=== PATIENT | female | born 1955 | race Caucasian/White ===

== ENCOUNTER → 2020-09-28 | Outpatient (CLI) | payer MEDICARE ==
[2020-09-28 14:57] VITALS: BP 134/89; PULSE 96; RESP 18; TEMP 98.7; BMI 38.4
--- NOTE | 2020-09-28 15:31 | P.HPBAR ---
Bariatric H&P - History & Physicial H&P Date: 09/28/20 History & Physicial: Visit/CC: initial visit Patient initial contact: Initial weight: Initial weight in pounds: Height: 5 ft 2 in Initial BMI: Last weight: Current weight: 95.254 kg Current weight in pounds: 210.00 Current BMI: 38.4 [place] body weight (based on NIH guidelines): 49.895 kg Excess body weight loss: The patient is a 65 year-old F who presents for Bariatric Assessment. Patient presents today for lab band follow. She's not seen several years. She had her LAP-BAND emptied in [place] over a year ago. She's gained weight. She requested fill. 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 bilat rotator cuff. brain sx 07/2010. LAP BAND 2004. Past Anesthesia/Blood Transfusion Reactions: No Reported Reaction Past Psychological History: Depression Smoking Status: Never smoker Past Alcohol Use History: Rare Past Drug Use History: Marijuana Additional Drug Use History / Comment(s): CBD oil in brownies nightly. Surgical - Exam Vital Signs Temp Pulse Resp BP 98.7 F 96 18 134/89 09/28/20 14:42 09/28/20 14:42 09/28/20 14:42 09/28/20 14:42 - General well developed, well nourished, no distress - Eyes PERRL - ENT normal pinna - Neck no masses - Respiratory normal expansion - Cardiovascular Rhythm: regular - Abdomen Abdomen: soft, non tender Bariatric Assessment & Plan Plan: Patient LAP-BAND was just. She 1.5 mL added to her band. She'll follow-up in 4 weeks. Bariatric Checklist Checklist: Plan: Checklist: EGD: 1. Hiatal hernia: 2. H. Pylori: HgbA1c: Vitamin D: Smoking: Primary care physician referral: Khadar Smith ([place], [place]) Psychiatry clearance: Cardiology clearance: Sleep study: Diet journal: VTE risk score: VTE risk level: Rehab needs at discharge:
== END ==
LOC: BARWHC3 14:36
PROVIDERS: ATTEND Surgery
DX: Z46.51 Encounter for fitting and adjustment of gastric lap band (principal); I10 Essential (primary) hypertension; F32.9 Major depressive disorder, single episode, unspecified; Z88.5 Allergy status to narcotic agent; Z88.7 Allergy status to serum and vaccine; Z88.8 Allergy status to other drugs, medicaments and biological substances
CPT/HCPCS: 99202

== ENCOUNTER → 2020-11-02 | Outpatient (CLI) | payer MEDICARE ==
[2020-11-02 15:32] VITALS: BP 141/88; PULSE 83; RESP 16; TEMP 98.7; BMI 38.9
--- NOTE | 2020-11-03 12:39 | P.HPBAR ---
Bariatric H&P - History & Physicial H&P Date: 11/02/20 History & Physicial: Visit/CC: Band f/u Patient initial contact: Initial weight: 105.233 kg Initial weight in pounds: 232.00 Height: 5 ft 2 in Initial BMI: 42.4 Last weight: Current weight: 96.615 kg Current weight in pounds: 213.00 Current BMI: 38.9 [place] body weight (based on NIH guidelines): 49.895 kg Excess body weight loss: 15.5% The patient is a 65 year-old F who presents for Bariatric Assessment. Patient presents today for laparoscopic fall. She's had weight gain. She is requesting a fill. 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 bilat rotator cuff. brain sx 07/2010. LAP BAND 2004. Past Anesthesia/Blood Transfusion Reactions: No Reported Reaction Past Psychological History: Depression Smoking Status: Never smoker Past Alcohol Use History: Rare Past Drug Use History: Marijuana Additional Drug Use History / Comment(s): CBD oil in brownies nightly. Surgical - Exam Vital Signs Temp Pulse Resp BP 98.7 F 83 16 141/88 11/02/20 15:28 11/02/20 15:28 11/02/20 15:28 11/02/20 15:28 - General well developed, well nourished, no distress - Eyes PERRL - ENT normal pinna - Neck no masses - Respiratory normal expansion - Cardiovascular Rhythm: regular - Abdomen Abdomen: soft, non tender Bariatric Assessment & Plan Plan: Patient has a malfunctioning LAP-BAND port. She was given 1 mL fill. There is obvious leak of the port. Patient was scheduled for replacement of LAP-BAND port. Bariatric Checklist Checklist: Plan: Checklist: EGD: 1. Hiatal hernia: 2. H. Pylori: HgbA1c: Vitamin D: Smoking: Primary care physician referral: Khadar Smith ([place], [place]) Psychiatry clearance: Cardiology clearance: Sleep study: Diet journal: VTE risk score: VTE risk level: Rehab needs at discharge:
== END ==
LOC: BARWHC3 14:16
PROVIDERS: ATTEND Surgery
DX: Z46.51 Encounter for fitting and adjustment of gastric lap band (principal); I10 Essential (primary) hypertension; F32.9 Major depressive disorder, single episode, unspecified; Z88.5 Allergy status to narcotic agent; Z88.7 Allergy status to serum and vaccine; Z88.6 Allergy status to analgesic agent
CPT/HCPCS: 99212

== ENCOUNTER 2020-12-08 06:05 | Day surgery (SDC) | payer MEDICARE ==
[2020-12-04 12:39] VITALS: BMI 38.9
[2020-12-08] MEDS ORDERED: LACTATED RINGERS 1,000 ML IV SCH (06:19)
[2020-12-08] MEDS ORDERED: LIDOCAINE 1% (10MG/ML) FOR IV START INTRADERMA PRN (06:19)
[2020-12-08] MEDS ORDERED: LIDOCAINE 1% (10MG/ML) FOR IV START INTRADERMA ONE (07:05)
[2020-12-08] MEDS ORDERED: ONDANSETRON 4 MG/2 ML VIAL ONE (07:21)
[2020-12-08] MEDS ORDERED: DEXAMETHASONE SOD PHOSPHATE 4 MG/ML 1 ML VIAL IVP ONE (07:22)
[2020-12-08] MEDS ORDERED: ONDANSETRON 4 MG/2 ML VIAL IVP ONE (07:22)
[2020-12-08] MEDS ORDERED: ROCURONIUM 10 MG/ML (5 ML VIAL) IV ONE (07:52)
[2020-12-08] MEDS ORDERED: LIDOCAINE 1% INJ 10MG/ML (20 ML MDV) ONE (07:52)
[2020-12-08] MEDS ORDERED: SUCCINYLCHOLINE CHLORIDE 100 MG/5 ML SYR IV ONE (07:52)
[2020-12-08] MEDS ORDERED: HEPARIN SODIUM,PORCINE/PF 5,000 UNIT/0.5 ML SYRINGE SQ ONE (07:52)
[2020-12-08] MEDS ORDERED: fentaNYL (PF) 50 MCG/ML 2 ML AMP ONE (07:52)
[2020-12-08] MEDS ORDERED: NEOSTIGMINE 1 MG/ML 10 ML VIAL ONE (07:52)
[2020-12-08] MEDS ORDERED: GLYCOPYRROLATE 0.2 MG/ML 2 ML VIAL ONE (07:52)
[2020-12-08] MEDS ORDERED: PROPOFOL 10 MG/ML 20 ML VIAL IV ONE (07:52)
[2020-12-08] MEDS ORDERED: HYDROmorphone (PF) 1 MG/ML ONE (07:52)
--- NOTE | 2020-12-08 08:20 | P.GSHP ---
History of Present Illness H&P Date: 12/08/20 Chief Complaint: LAP-BAND port malfunction Is a 65-year-old female who presents today for laparoscopic placement LAP-BAND port. Patient has had issues with maintaining her restriction. Past Medical History Past Medical History: GERD/Reflux, Hypertension, Seizure Disorder Additional Past Medical History / Comment(s): "Sweet Syndrome" (Blood Infection, little blisters appears, comes and goes). No issues in 6 months. Hx low iron. No seizure in 2 yrs. History of Any Multi-Drug Resistant Organisms: None Reported Past Surgical History: Bariatric Surgery, Orthopedic Surgery Additional Past Surgical History / Comment(s): Back fusion (L3,L4,L5), bilateral rotator cuff, brain surgery 07/2010, LAP BAND 2004, varicose vein procedure. Past Anesthesia/Blood Transfusion Reactions: No Reported Reaction Past Psychological History: Depression Additional Psychological History / Comment(s): "No problems with depression in a lot of years." Smoking Status: Never smoker Past Alcohol Use History: Rare Past Drug Use History: Marijuana Additional Drug Use History / Comment(s): CBD oil in brownies nightly. - Past Family History Mother Family Medical History: Cancer Additional Family Medical History / Comment(s): Breast cancer. Sister(s) Family Medical History: Cancer Additional Family Medical History / Comment(s): Breast cancer X2 sisters. Medications and Allergies Home Medications Medication Instructions Recorded Confirmed Type Omeprazole 20 mg PO HS 12/04/20 12/08/20 History Allergies Allergy/AdvReac Type Severity Reaction Status Date / Time codeine Allergy Nausea & Verified 12/08/20 07:16 Vomiting meperidine [From Demerol] Allergy Nausea & Verified 12/08/20 07:16 Vomiting Tetanus Vaccines and Toxoid Allergy Swelling Verified 12/08/20 07:16 Surgical - Exam Vital Signs Temp Pulse Resp BP Pulse Ox 97.0 F L 89 16 135/88 96 12/08/20 06:47 12/08/20 06:47 12/08/20 06:47 12/08/20 06:47 12/08/20 06:47 - General well developed, well nourished, no distress - Eyes PERRL - ENT normal pinna - Neck no masses - Respiratory normal expansion - Cardiovascular Rhythm: regular - Abdomen Abdomen: soft, non tender Assessment and Plan Assessment: LAP-BAND port function. We'll perform laparoscopic replacement of LAP-BAND port.
[2020-12-08] MEDS ORDERED: BUPIVACAINE (PF) 0.5% 30 ML VIAL SQ ONE (08:24)
--- NOTE | 2020-12-08 08:58 | P.OP ---
Date of Procedure: 12/08/20 Preoperative Diagnosis: LAP-BAND port malfunction Postoperative Diagnosis: LAP-BAND port malfunction Procedure(s) Performed: Laparoscopic removal and replacement of LAP-BAND port Anesthesia: KATHERINE Surgeon: Quentin Hanson Pathology: none sent Condition: stable Disposition: PACU Description of Procedure: The patient's placed on the operative table in the supine position. She received general anesthesia. Her abdomen was prepped and draped usual fashion. The trocar sites were anesthetized 1% local Xylocaine. Using 11 blade the skin was incised over the LAP-BAND port. Using left cautery the subcu tissue divided. The LAP-BAND port was dissected free and sent to pathology. Next a 5 mm trochars placed into the epigastric port site the end was insufflated. After adequate insufflation a 10 mm trochars placed in the upper quadrant. The PEG tube was then brought over to the 10 mm trocar site. It was extracted through the mitral percent. The new LAP-BAND port connected PEG tube. The new port site skin was incised and left cautery used to dissect subcutaneous fat off of the fascia. The LAP-BAND port and connected to the fascia using 0 Nurolon suture. The LAP-BAND port was then flushed with 3 mL of saline. There was no leak. All fluid was removed from the LAP-BAND port. The skin was closed interrupted 3-0 Monocryl suture. The trochars were withdrawn and the skin was closed with Vicryl suture. Dermabond was applied. Patient top she will was sent to recovery room in stable condition.
[2020-12-08 09:05] VITALS: TEMP 97.9
[2020-12-08] MEDS ORDERED: KETOROLAC 15 MG/ML 1 ML VIAL ONE (09:06)
[2020-12-08] MEDS ORDERED: HYDROmorphone 0.5 MG/0.5 ML SYRINGE IVP ONE (09:08)
[2020-12-08] MEDS ORDERED: KETOROLAC 15 MG/ML 1 ML VIAL IVP ONE (09:11)
[2020-12-08 10:37] VITALS: BP 138/89; PULSE 62; RESP 16
== END 2020-12-08 10:55 | disposition home or self-care (01) ==
LOC: OR 06:05
PROVIDERS: ATTEND Surgery
DX: T85.618A Breakdown (mechanical) of other specified internal prosthetic devices, implants and grafts, initial encounter (principal); K21.9 Gastro-esophageal reflux disease without esophagitis; I10 Essential (primary) hypertension; G40.909 Epilepsy, unspecified, not intractable, without status epilepticus; L98.2 Febrile neutrophilic dermatosis [Sweet]; Z98.1 Arthrodesis status; Z98.890 Other specified postprocedural states; F32.9 Major depressive disorder, single episode, unspecified; Z85.841 Personal history of malignant neoplasm of brain; Z97.2 Presence of dental prosthetic device (complete) (partial); Z80.3 Family history of malignant neoplasm of breast; Z79.899 Other long term (current) drug therapy; Z88.5 Allergy status to narcotic agent; Z88.7 Allergy status to serum and vaccine
CPT/HCPCS: 43773; C1751; J1100; J2710; J0690; J2405; J2001; J3010; J1170 ×2; J1885; J0330; J2704; J1644

== ENCOUNTER → 2020-12-14 | Outpatient (CLI) | payer MEDICARE ==
[2020-12-14 14:14] VITALS: BP 158/85; PULSE 82; TEMP 98.2; BMI 37.6
--- NOTE | 2020-12-24 19:51 | P.HPBAR ---
Bariatric H&P - History & Physicial H&P Date: 12/14/20 History & Physicial: Visit/CC: port rerplacement follow up Patient initial contact: Initial weight: 105.233 kg Initial weight in pounds: 232.00 Height: 5 ft 2 in Initial BMI: 42.4 Last weight: Current weight: 93.44 kg Current weight in pounds: 206.00 Current BMI: 37.6 [place] body weight (based on NIH guidelines): 49.895 kg Excess body weight loss: 21.3% The patient is a 65 year-old F who presents for Bariatric Assessment. Patient presents today for postoperative follow-up. She underwent recent LAP-BAND port replacement. Past Medical History Past Medical History: GERD/Reflux, Hypertension, Seizure Disorder Additional Past Medical History / Comment(s): "Sweet Syndrome" (Blood Infection, little blisters appears, comes and goes). No issues in 6 months. Hx low iron. No seizure in 2 yrs. History of Any Multi-Drug Resistant Organisms: None Reported Past Surgical History: Bariatric Surgery, Orthopedic Surgery Additional Past Surgical History / Comment(s): Back fusion (L3,L4,L5), bilateral rotator cuff, brain surgery 07/2010, LAP BAND 2004, varicose vein procedure. lap band port replacement 12-08-20 Past Anesthesia/Blood Transfusion Reactions: No Reported Reaction Past Psychological History: Depression Additional Psychological History / Comment(s): "No problems with depression in a lot of years." Smoking Status: Never smoker Past Alcohol Use History: Rare Past Drug Use History: Marijuana Additional Drug Use History / Comment(s): CBD oil in brownies nightly. - Past Family History Mother Family Medical History: Cancer Additional Family Medical History / Comment(s): Breast cancer. Sister(s) Family Medical History: Cancer Additional Family Medical History / Comment(s): Breast cancer X2 sisters. Surgical - Exam Vital Signs Temp Pulse BP 98.2 F 82 158/85 12/14/20 14:09 12/14/20 14:09 12/14/20 14:09 - General well developed, well nourished, no distress - Eyes PERRL - ENT normal pinna - Neck no masses - Respiratory normal expansion - Cardiovascular Rhythm: regular - Abdomen Abdomen: soft, non tender Bariatric Assessment & Plan Plan: Patient's lap band port site is clean. She'll follow-up in 2 weeks for LAP-BAND adjustment Bariatric Checklist Checklist: Plan: Checklist: EGD: 1. Hiatal hernia: 2. H. Pylori: HgbA1c: Vitamin D: Smoking: Primary care physician referral: Khadar Smith ([place], [place]) Psychiatry clearance: Cardiology clearance: Sleep study: Diet journal: VTE risk score: VTE risk level: Rehab needs at discharge:
== END ==
LOC: BARWHC3 12:55
PROVIDERS: ATTEND Surgery
DX: Z09 Encounter for follow-up examination after completed treatment for conditions other than malignant neoplasm (principal); I10 Essential (primary) hypertension; F32.9 Major depressive disorder, single episode, unspecified; Z98.84 Bariatric surgery status; Z88.5 Allergy status to narcotic agent; Z88.7 Allergy status to serum and vaccine
CPT/HCPCS: 99211

== ENCOUNTER → 2021-01-18 | Outpatient (CLI) | payer MEDICARE ==
[2021-01-18 14:19] VITALS: BP 129/91; PULSE 99; RESP 18; TEMP 98.4; BMI 38.2
--- NOTE | 2021-01-18 16:14 | P.HPBAR ---
Bariatric H&P - History & Physicial H&P Date: 01/18/21 History & Physicial: Visit/CC: follow up / lap band Patient initial contact: Initial weight: 105.233 kg Initial weight in pounds: 232.00 Height: 5 ft 2 in Initial BMI: 42.4 Last weight: Current weight: 94.982 kg Current weight in pounds: 209.40 Current BMI: 38.2 [place] body weight (based on NIH guidelines): 49.895 kg Excess body weight loss: 18.5% The patient is a 65 year-old F who presents for Bariatric Assessment. Patient presents today for LAP-BAND follow-up. She is requesting a fill her band. He is currently hungry. Past Medical History Past Medical History: GERD/Reflux, Hypertension, Seizure Disorder Additional Past Medical History / Comment(s): "Sweet Syndrome" (Blood Infection, little blisters appears, comes and goes). No issues in 6 months. Hx low iron. No seizure in 2 yrs. History of Any Multi-Drug Resistant Organisms: None Reported Past Surgical History: Bariatric Surgery, Orthopedic Surgery Additional Past Surgical History / Comment(s): Back fusion (L3,L4,L5), bilateral rotator cuff, brain surgery 07/2010, LAP BAND 2004, varicose vein procedure. lap band port replacement 12-08-20 Past Anesthesia/Blood Transfusion Reactions: No Reported Reaction Past Psychological History: Depression Additional Psychological History / Comment(s): "No problems with depression in a lot of years." Smoking Status: Never smoker Past Alcohol Use History: Rare Past Drug Use History: Marijuana Additional Drug Use History / Comment(s): CBD oil in brownies nightly. - Past Family History Mother Family Medical History: Cancer Additional Family Medical History / Comment(s): Breast cancer. Sister(s) Family Medical History: Cancer Additional Family Medical History / Comment(s): Breast cancer X2 sisters. Surgical - Exam Vital Signs Temp Pulse Resp BP 98.4 F 99 18 129/91 01/18/21 14:15 01/18/21 14:15 01/18/21 14:15 01/18/21 14:15 - General well developed, well nourished, no distress - Eyes PERRL - ENT normal pinna - Neck no masses - Respiratory normal expansion - Cardiovascular Rhythm: regular - Abdomen Abdomen: soft, non tender Bariatric Assessment & Plan Plan: Patient LAP-BAND was just. She had 3 mL added to her band. She'll follow-up in 4 weeks. Bariatric Checklist Checklist: Plan: Checklist: EGD: 1. Hiatal hernia: 2. H. Pylori: HgbA1c: Vitamin D: Smoking: Primary care physician referral: Khadar Smith ([place], [place]) Psychiatry clearance: Cardiology clearance: Sleep study: Diet journal: VTE risk score: VTE risk level: Rehab needs at discharge:
== END ==
LOC: BARWHC3 13:46
PROVIDERS: ATTEND Surgery
DX: Z09 Encounter for follow-up examination after completed treatment for conditions other than malignant neoplasm (principal); I10 Essential (primary) hypertension; F32.A Depression, unspecified; Z98.84 Bariatric surgery status; Z88.5 Allergy status to narcotic agent; Z88.7 Allergy status to serum and vaccine
CPT/HCPCS: 99212

== ENCOUNTER → 2021-05-24 | Outpatient (CLI) | payer MEDICARE ==
[2021-05-24 12:56] VITALS: BP 133/83; PULSE 82; RESP 16; TEMP 98.4; BMI 36.0
--- NOTE | 2021-08-20 10:47 | P.HPBAR ---
Bariatric H&P - History & Physicial H&P Date: 05/24/21 History & Physicial: Visit/CC: lap band followup Patient initial contact: Initial weight: 105.233 kg Initial weight in pounds: 232.00 Height: 5 ft 2 in Initial BMI: 42.4 Last weight: Current weight: 89.312 kg Current weight in pounds: 196.90 Current BMI: 36.0 [place] body weight (based on NIH guidelines): 49.895 kg Excess body weight loss: 28.7% The patient is a 66 year-old F who presents for Bariatric Assessment. Patient presents today for LAP-BAND follow-up. She is requesting a fill of her band. She currently feels hungry. Past Medical History Past Medical History: GERD/Reflux, Hypertension, Seizure Disorder Additional Past Medical History / Comment(s): "Sweet Syndrome" (Blood Infection, little blisters appears, comes and goes). No issues in 6 months. Hx low iron. No seizure in 2 yrs. History of Any Multi-Drug Resistant Organisms: None Reported Past Surgical History: Bariatric Surgery, Orthopedic Surgery Additional Past Surgical History / Comment(s): Back fusion (L3,L4,L5), bilateral rotator cuff, brain surgery 07/2010, LAP BAND 2004, varicose vein procedure. lap band port replacement 12-08-20 Past Anesthesia/Blood Transfusion Reactions: No Reported Reaction Smoking Status: Never smoker - Past Family History Mother Family Medical History: Cancer Additional Family Medical History / Comment(s): Breast cancer. Sister(s) Family Medical History: Cancer Additional Family Medical History / Comment(s): Breast cancer X2 sisters. Surgical - Exam Vital Signs Temp Pulse Resp BP 98.4 F 82 16 133/83 05/24/21 12:53 05/24/21 12:53 05/24/21 12:53 05/24/21 12:53 - General well developed, well nourished, no distress - Eyes PERRL - ENT normal pinna - Neck no masses - Respiratory normal expansion - Cardiovascular Rhythm: regular - Abdomen Abdomen: soft, non tender Bariatric Assessment & Plan Plan: Patient's LAP-BAND was adjusted. She had 0.5 mL added to her band. She currently has 3.5 mL in the band. She'll follow-up in 4 weeks. Bariatric Checklist Checklist: Plan: Checklist: EGD: 1. Hiatal hernia: 2. H. Pylori: HgbA1c: Vitamin D: Smoking: Primary care physician referral: Khadar Smith ([place], [place]) Psychiatry clearance: Cardiology clearance: Sleep study: Diet journal: VTE risk score: VTE risk level: Rehab needs at discharge:
== END ==
LOC: BARWHC3 12:41
PROVIDERS: ATTEND Surgery
DX: Z46.51 Encounter for fitting and adjustment of gastric lap band (principal); I10 Essential (primary) hypertension; G40.909 Epilepsy, unspecified, not intractable, without status epilepticus; Z88.5 Allergy status to narcotic agent; Z88.7 Allergy status to serum and vaccine
CPT/HCPCS: 99212

== ENCOUNTER → 2023-05-08 | Outpatient (CLI) | payer MEDICARE ==
[2023-05-08 12:12] VITALS: BP 131/84; PULSE 102; RESP 13; TEMP 98.6
--- NOTE | 2023-05-08 12:15 | P.HPBAR ---
Bariatric H&P - History & Physicial H&P Date: 05/08/23 History & Physicial: Visit/CC: band follow up Patient initial contact: Initial weight: 105.233 kg Initial weight in pounds: 232.00 Height: Initial BMI: Last weight: Current weight: Current weight in pounds: Current BMI: [place] body weight (based on NIH guidelines): Excess body weight loss: The patient is a 67 year-old F who presents for Bariatric Assessment. Patient presents today for [place] fall. Patient is scheduled for reinsertion past surgical history she's requesting fluid to be removed from her LAP-BAND. Past Medical History Past Medical History: GERD/Reflux, Hypertension, Seizure Disorder Additional Past Medical History / Comment(s): "Sweet Syndrome" (Blood Infection, little blisters appears, comes and goes). No issues in 6 months. Hx low iron. No seizure in 2 yrs. History of Any Multi-Drug Resistant Organisms: None Reported Past Surgical History: Bariatric Surgery, Orthopedic Surgery Additional Past Surgical History / Comment(s): Back fusion (L3,L4,L5), bilateral rotator cuff, brain surgery 07/2010, LAP BAND 2004, varicose vein procedure. lap band port replacement 12-08-20 Past Anesthesia/Blood Transfusion Reactions: No Reported Reaction Past Psychological History: Depression Additional Psychological History / Comment(s): "No problems with depression in a lot of years." Smoking Status: Never smoker Past Alcohol Use History: Rare Past Drug Use History: Marijuana Additional Drug Use History / Comment(s): CBD oil in brownies nightly. - Past Family History Mother Family Medical History: Cancer Additional Family Medical History / Comment(s): Breast cancer. Sister(s) Family Medical History: Cancer Additional Family Medical History / Comment(s): Breast cancer X2 sisters. Surgical - Exam Vital Signs Temp Pulse Resp BP 98.6 F 102 H 13 131/84 05/08/23 11:47 05/08/23 11:47 05/08/23 11:47 05/08/23 11:47 - General well developed, well nourished, no distress - Eyes PERRL - ENT normal pinna, normal nares - Abdomen Abdomen: soft, non tender Bariatric Assessment & Plan Plan: Patient LAP-BAND was entered. She had 3 mL removed from her band. She will follow-up in 4 weeks. Bariatric Checklist Checklist: Plan: Checklist: EGD: 1. Hiatal hernia: 2. H. Pylori: HgbA1c: Vitamin D: Smoking: Primary care physician referral: Khadar Smith ([place], [place]) Psychiatry clearance: Cardiology clearance: Sleep study: Diet journal: VTE risk score: VTE risk level: Rehab needs at discharge:
== END ==
LOC: BARWHC3 10:04
PROVIDERS: ATTEND Surgery
DX: F12.90 Cannabis use, unspecified, uncomplicated (principal); Z98.84 Bariatric surgery status; Z88.5 Allergy status to narcotic agent; Z88.7 Allergy status to serum and vaccine
CPT/HCPCS: 43999

== ENCOUNTER → 2023-06-19 | Outpatient (CLI) | payer MEDICARE ==
[2023-06-19 12:06] VITALS: BP 141/79; PULSE 80; RESP 14; TEMP 97.9; BMI 29.1
--- NOTE | 2023-06-20 11:50 | P.HPBAR ---
Bariatric H&P - History & Physicial H&P Date: 06/19/23 History & Physicial: Visit/CC: follow up and possible fill Patient initial contact: Initial weight: 105.233 kg Initial weight in pounds: 232.00 Height: 5 ft 2 in Initial BMI: 42.4 Last weight: Current weight: 72.348 kg Current weight in pounds: 159.50 Current BMI: 29.1 [place] body weight (based on NIH guidelines): 49.895 kg Excess body weight loss: 59.4% The patient is a 67 year-old F who presents for Bariatric Assessment.patient resents today for bariatric follow-up. She is currently hungry requesting a fill of her band. The patient's gained 12 pounds since her last visit Past Medical History Past Medical History: GERD/Reflux, Hypertension, Seizure Disorder Additional Past Medical History / Comment(s): "Sweet Syndrome" (Blood Infection, little blisters appears, comes and goes). No issues in 6 months. Hx low iron. No seizure in 2 yrs. History of Any Multi-Drug Resistant Organisms: None Reported Past Surgical History: Bariatric Surgery, Orthopedic Surgery Additional Past Surgical History / Comment(s): Back fusion (L3,L4,L5), bilateral rotator cuff, brain surgery 07/2010, LAP BAND 2004, varicose vein procedure. lap band port replacement 12-08-20 Past Anesthesia/Blood Transfusion Reactions: No Reported Reaction Past Psychological History: Depression Additional Psychological History / Comment(s): "No problems with depression in a lot of years." Smoking Status: Never smoker Past Alcohol Use History: Rare Past Drug Use History: Marijuana Additional Drug Use History / Comment(s): CBD oil in brownies nightly. - Past Family History Mother Family Medical History: Cancer Additional Family Medical History / Comment(s): Breast cancer. Sister(s) Family Medical History: Cancer Additional Family Medical History / Comment(s): Breast cancer X2 sisters. Surgical - Exam Vital Signs Temp Pulse Resp BP 97.9 F 80 14 141/79 06/19/23 11:46 06/19/23 11:46 06/19/23 11:46 06/19/23 11:46 - General well developed, well nourished, no distress - Eyes PERRL - Abdomen Abdomen: soft, non tender Bariatric Assessment & Plan Plan: patient's LAP-BAND was adjusted. She had 0.3 mL added to the band. She currently is 3.8 mL in the band. She'll follow-up in 4 weeks. Bariatric Checklist Checklist: Plan: Checklist: EGD: 1. Hiatal hernia: 2. H. Pylori: HgbA1c: Vitamin D: Smoking: Primary care physician referral: Khadar Smith ([place], [place]) Psychiatry clearance: Cardiology clearance: Sleep study: Diet journal: VTE risk score: VTE risk level: Rehab needs at discharge:
== END ==
LOC: BARWHC3 10:45
PROVIDERS: ATTEND Surgery
DX: Z46.51 Encounter for fitting and adjustment of gastric lap band (principal); Z98.84 Bariatric surgery status; Z90.3 Acquired absence of stomach [part of]; Z88.5 Allergy status to narcotic agent; Z88.7 Allergy status to serum and vaccine; Z88.8 Allergy status to other drugs, medicaments and biological substances
CPT/HCPCS: 43999

== ENCOUNTER → 2023-07-17 | Outpatient (CLI) | payer MEDICARE ==
[2023-07-17 13:28] VITALS: BP 136/86; PULSE 85; RESP 14; TEMP 98.3; BMI 30.4
--- NOTE | 2023-07-18 09:29 | P.HPBAR ---
Bariatric H&P - History & Physicial H&P Date: 07/17/23 History & Physicial: Visit/CC: lap band follow up Patient initial contact: Initial weight: 105.233 kg Initial weight in pounds: 232.00 Height: 5 ft 2 in Initial BMI: 42.4 Last weight: Current weight: 75.659 kg Current weight in pounds: 166.80 Current BMI: 30.4 [place] body weight (based on NIH guidelines): 49.895 kg Excess body weight loss: 53.4% The patient is a 68 year-old F who presents for Bariatric Assessment.patient was a safer better follow-up. Patient is requesting a fill of her band. She currently feels hungry. Past Medical History Past Medical History: GERD/Reflux, Hypertension, Seizure Disorder Additional Past Medical History / Comment(s): "Sweet Syndrome" (Blood Infection, little blisters appears, comes and goes). No issues in 6 months. Hx low iron. No seizure in 2 yrs. History of Any Multi-Drug Resistant Organisms: None Reported Past Surgical History: Bariatric Surgery, Orthopedic Surgery Additional Past Surgical History / Comment(s): Back fusion (L3,L4,L5), bilateral rotator cuff, brain surgery 07/2010, LAP BAND 2004, varicose vein procedure. lap band port replacement 12-08-20 Past Anesthesia/Blood Transfusion Reactions: No Reported Reaction Past Psychological History: Depression Additional Psychological History / Comment(s): "No problems with depression in a lot of years." Smoking Status: Never smoker Past Alcohol Use History: Rare Past Drug Use History: Marijuana Additional Drug Use History / Comment(s): CBD oil in brownies nightly. - Past Family History Mother Family Medical History: Cancer Additional Family Medical History / Comment(s): Breast cancer. Sister(s) Family Medical History: Cancer Additional Family Medical History / Comment(s): Breast cancer X2 sisters. Surgical - Exam Vital Signs Temp Pulse Resp BP 98.3 F 85 14 136/86 07/17/23 11:17 07/17/23 11:17 07/17/23 11:17 07/17/23 11:17 - General well developed, well nourished, no distress - Eyes PERRL - ENT normal pinna - Abdomen Abdomen: soft, non tender Bariatric Assessment & Plan Plan: patient's LAP-BAND was adjusted. She had 0.5 mL added to the band. She'll follow-up in 4 weeks. Bariatric Checklist Checklist: Plan: Checklist: EGD: 1. Hiatal hernia: 2. H. Pylori: HgbA1c: Vitamin D: Smoking: Primary care physician referral: Khadar Smith ([place], [place]) Psychiatry clearance: Cardiology clearance: Sleep study: Diet journal: VTE risk score: VTE risk level: Rehab needs at discharge:
== END ==
LOC: BARWHC3 10:17
PROVIDERS: ATTEND Surgery
DX: Z46.51 Encounter for fitting and adjustment of gastric lap band (principal); Z98.84 Bariatric surgery status; Z90.3 Acquired absence of stomach [part of]; Z88.5 Allergy status to narcotic agent; Z88.7 Allergy status to serum and vaccine; Z88.8 Allergy status to other drugs, medicaments and biological substances
CPT/HCPCS: 99211

== ENCOUNTER 2023-09-11 08:46 | Day surgery (SDC) | payer MEDICARE ==
[~2023-09-11 08:46] MED LIST: fentaNYL (PF) 50 MCG/ML 2 ML AMP IV PRN
[2023-09-11] MEDS: IV FLUID CONTINUATION 1,000 ML IV ONE ×2 (09:05→12:24)
[2023-09-11] MEDS: DEXAMETHASONE SOD PHOSPHATE 4 MG/ML 1 ML VIAL IV ONE (09:30)
[2023-09-11] MEDS: ONDANSETRON 4 MG/2 ML VIAL IVP ONE (09:30)
[2023-09-11] MEDS: LACTATED RINGERS 1,000 ML IV SCH (09:30)
--- NOTE | 2023-09-11 10:32 | P.GSHP ---
History of Present Illness H&P Date: 09/11/23 Chief Complaint: Lap-Band port malfunction This is a 68-year-old female who has a malfunctioning Lap-Band port. Patient presents today for Lap-Band port replacement. Past Medical History Past Medical History: Blood Disorder, Cancer, GERD/Reflux, Hyperlipidemia, Hypertension, Seizure Disorder, Sleep Apnea/CPAP/BIPAP Additional Past Medical History / Comment(s): "Sweet Syndrome"(Blood Infection, little blisters appears, comes and goes). Hx low iron. Last seizure 2 yrs ago. [place] breast ca August 2022. Benign brain tumor. No problems with sleep apnea since weight loss. History of Any Multi-Drug Resistant Organisms: None Reported Past Surgical History: Back Surgery, Bariatric Surgery, Breast Surgery, Orthopedic Surgery Additional Past Surgical History / Comment(s): Back fusion (L3,L4,L5), bilateral rotator cuff, brain surgery 07/2010, LAP BAND 2004, varicose vein procedure, lap band port replacement 12-08-20; laser eye surg; double mastectomy 2022 and reconstruction Past Anesthesia/Blood Transfusion Reactions: No Reported Reaction Smoking Status: Never smoker - Past Family History Mother Family Medical History: Cancer Additional Family Medical History / Comment(s): Breast cancer. Sister(s) Family Medical History: Cancer Additional Family Medical History / Comment(s): Breast cancer X2 sisters. Medications and Allergies Home Medications Medication Instructions Recorded Confirmed Type Omeprazole 20 mg PO HS 12/04/20 09/07/23 History Anastrozole [Arimidex] 1 mg PO HS 07/17/23 09/07/23 History Magnesium 250 mg PO HS 07/17/23 09/07/23 History Rosuvastatin [Crestor] 10 mg PO HS 07/17/23 09/07/23 History Cholecalciferol (Vitamin D3) 125 mcg PO HS 08/14/23 09/07/23 History [Vitamin D3 (125 MCG = 5,000 IU)] Ferrous Sulfate [Feosol] 130 mg PO HS 08/14/23 09/07/23 History Allergies Allergy/AdvReac Type Severity Reaction Status Date / Time codeine Allergy Nausea & Verified 09/11/23 09:14 Vomiting meperidine [From Demerol] Allergy Nausea & Verified 09/11/23 09:14 Vomiting Tetanus Vaccines and Toxoid Allergy Swelling Verified 09/11/23 09:14 Surgical - Exam Vital Signs Temp Pulse Resp BP Pulse Ox 97.2 F L 80 18 137/80 99 09/11/23 09:14 09/11/23 09:14 09/11/23 09:14 09/11/23 09:14 09/11/23 09:14 - General well developed, well nourished, no distress - Eyes PERRL - ENT normal pinna - Neck no masses - Respiratory normal expansion - Cardiovascular Rhythm: regular - Abdomen Abdomen: soft, non tender Assessment and Plan Assessment: Will perform replacement of Lap-Band port.
[2023-09-11] MEDS ORDERED: fentaNYL (PF) 50 MCG/ML 2 ML AMP ONE (10:39)
[2023-09-11] MEDS ORDERED: DEXAMETHASONE SOD PHOSPHATE 10 MG/ML 1 ML VIAL ONE (10:39)
[2023-09-11] MEDS ORDERED: MIDAZOLAM 2 MG/2 ML VIAL ONE (10:39)
[2023-09-11] MEDS ORDERED: PROPOFOL 10 MG/ML 20 ML VIAL IV ONE (10:39)
[2023-09-11] MEDS ORDERED: ROCURONIUM 10 MG/ML (5 ML VIAL) IV ONE (10:39)
[2023-09-11] MEDS ORDERED: KETOROLAC 15 MG/ML 1 ML VIAL ONE (10:39)
[2023-09-11] MEDS: BUPIVACAINE (PF) 0.25% 30 ML VIAL SQ ONE (11:15)
[2023-09-11 11:57] VITALS: TEMP 97
--- NOTE | 2023-09-11 12:11 | P.OP ---
Date of Procedure: 09/11/23 Preoperative Diagnosis: Lap-Band port malfunction Postoperative Diagnosis: Lap-Band port malfunction Procedure(s) Performed: Laparoscopic removal and replacement of Lap-Band port Anesthesia: KATHERINE Surgeon: Quentin Hanson Estimated Blood Loss (ml): 5 Pathology: none sent Condition: stable Disposition: PACU Description of Procedure: The patient is placed on the operative table in the supine position. She received general endotracheal tube anesthesia. Her abdomen was prepped and draped in usual fashion. The skin was incised Lap-Band port. This was in the left upper quadrant. And then using electrocautery Lap-Band port was dissected free. The Tube was then cut and Lap-Band port was withdrawn. Using a 5 mm optical trocar under direct vision the peritoneal cavity is entered. The peritoneal cavity was then insufflated with the pocket for the Lap-Band port was. Use electrocautery. The Lap-Band port was secured using 0 Nurolon suture. The skin was then closed with 3-0 Monocryl suture. The Lap-Band port was flushed with 3 cc of normal saline. Sterile dressing applied. Patient tolerated well. She was sent to recovery room in stable condition. After adequate deflation laparoscope placed back in [place] cavity. Next a 10 mm trocar was placed in the right upper quadrant a 5 mm trocars placed in the right lower quadrant and another 5 mm trocars placed in the left lateral position. The clinic tube was then brought up through the 10 mm trocar site. The trocars withdrawn. And then the new Lap-Band port was clamped to the
[2023-09-11 12:33] VITALS: RESP 16
[2023-09-11 12:54] VITALS: PULSE 74
[2023-09-11 13:26] VITALS: BP 116/74
== END 2023-09-11 14:22 | disposition home or self-care (01) ==
LOC: OR 08:46
PROVIDERS: ATTEND Surgery
DX: K95.09 Other complications of gastric band procedure (principal); K21.9 Gastro-esophageal reflux disease without esophagitis; E78.5 Hyperlipidemia, unspecified; I10 Essential (primary) hypertension; G47.30 Sleep apnea, unspecified; G40.909 Epilepsy, unspecified, not intractable, without status epilepticus; Z85.3 Personal history of malignant neoplasm of breast; Z98.84 Bariatric surgery status; Z80.3 Family history of malignant neoplasm of breast; Z79.811 Long term (current) use of aromatase inhibitors; Z79.899 Other long term (current) drug therapy; Z88.5 Allergy status to narcotic agent; Z88.7 Allergy status to serum and vaccine
CPT/HCPCS: 43659; J1100; J0690; J2405; J0665

== ENCOUNTER → 2023-09-25 | Outpatient (CLI) | payer MEDICARE ==
--- NOTE | 2023-11-09 14:39 | CONS ---
CONSULTATION CHIEF COMPLAINT: Postoperative lap band port placement. HISTORY OF PRESENT ILLNESS: This is a 68-year-old female, who underwent recent removal and replacement of lap band port. The patient was found to have lap band port malfunction. She has no complaints. PHYSICAL EXAMINATION: VITAL SIGNS: Stable. ABDOMEN: Soft, nontender. Incision sites are well healed. The patient lost 6 pounds since her lap band port placement. The patient will not be adjusted with this visit. She will follow up in 4 weeks. MMODL / IJN: [id number] /
== END ==
LOC: BARWHC3 10:30
PROVIDERS: ATTEND Surgery
CPT/HCPCS: 43999

== ENCOUNTER → 2023-10-23 | Outpatient (CLI) | payer MEDICARE ==
[2023-10-23 11:01] VITALS: BP 126/84; PULSE 116; RESP 16; TEMP 98.9; BMI 31.1
--- NOTE | 2023-10-23 13:24 | P.HPBAR ---
Bariatric H&P - History & Physicial H&P Date: 10/23/23 History & Physicial: Visit/CC: f/u Patient initial contact: Initial weight: 105.233 kg Initial weight in pounds: 232.00 Height: 5 ft 2 in Initial BMI: 42.4 Last weight: Current weight: 77.111 kg Current weight in pounds: 170.00 Current BMI: 31.1 [place] body weight (based on NIH guidelines): 49.895 kg Excess body weight loss: 50.8% The patient is a 68 year-old F who presents for Bariatric Assessment. Presents today for Lap-Band adjustment. She is currently hungry Past Medical History Past Medical History: Blood Disorder, Cancer, GERD/Reflux, Hyperlipidemia, Hypertension, Seizure Disorder, Sleep Apnea/CPAP/BIPAP Additional Past Medical History / Comment(s): "Sweet Syndrome"(Blood Infection, little blisters appears, comes and goes). Hx low iron. Last seizure 2 yrs ago. J[place]ior breast ca August 2022. Benign brain tumor. No problems with sleep apnea since weight loss. History of Any Multi-Drug Resistant Organisms: None Reported Past Surgical History: Back Surgery, Bariatric Surgery, Breast Surgery, Orthopedic Surgery Additional Past Surgical History / Comment(s): Back fusion (L3,L4,L5), bilateral rotator cuff, brain surgery 07/2010, LAP BAND 2004, varicose vein procedure, lap band port replacement 12-08-20; laser eye surg; double mastectomy 2022 and reconstruction Past Anesthesia/Blood Transfusion Reactions: No Reported Reaction Past Psychological History: Depression Additional Psychological History / Comment(s): "No problems with depression in a lot of years." Smoking Status: Never smoker Past Alcohol Use History: Rare Past Drug Use History: Marijuana Additional Drug Use History / Comment(s): marijuana edibles to help sleep - advised none 24 hrs prior to surg. - Past Family History Mother Family Medical History: Cancer Additional Family Medical History / Comment(s): Breast cancer. Sister(s) Family Medical History: Cancer Additional Family Medical History / Comment(s): Breast cancer X2 sisters. Surgical - Exam Vital Signs Temp Pulse Resp BP 98.9 F 116 H 16 126/84 10/23/23 10:48 10/23/23 10:48 10/23/23 10:48 10/23/23 10:48 - General well developed, well nourished, no distress - Eyes PERRL - ENT normal pinna - Abdomen Abdomen: soft, non tender Bariatric Assessment & Plan Plan: Patient Lap-Band adjusted. She had 1 cc of the band. She will follow-up in 4 weeks. Bariatric Checklist Checklist: Plan: Checklist: EGD: 1. Hiatal hernia: 2. H. Pylori: HgbA1c: Vitamin D: Smoking: Primary care physician referral: Khadar Smith ([place], [place]) Psychiatry clearance: Cardiology clearance: Sleep study: Diet journal: VTE risk score: VTE risk level: Rehab needs at discharge:
== END ==
LOC: BARWHC3 10:23
PROVIDERS: ATTEND Surgery
CPT/HCPCS: 99211